=== PATIENT | female | born 1970 | race Caucasian/White ===

== ENCOUNTER 2025-03-20 08:45 | Emergency (ER) | payer BC, SELFPAY ==
--- NOTE | ~2025-03-20 | CT_ITS ---
EXAMINATION: CT abdomen pelvis w con DATE: 03/20/2025 09:54 INDICATION: Left lower quadrant abdominal pain. TECHNIQUE: Computed tomography (CT) of the abdomen and pelvis was performed with 100 mL Omnipaque 350 intravenous contrast. Automated exposure control and iterative reconstruction technique were employed. The dose-length product was 800.87 mGy-cm. COMPARISON: None. FINDINGS: The visualized portions of the lung bases demonstrate mild atelectasis. No pleural effusion. The heart size is normal. No pericardial effusion. There is a small sliding hiatal hernia. There is a 7 mm cyst in the liver. There are changes of cholecystectomy. The pancreas, spleen, adrenal glands, and right kidney are normal. There is a 2.1 cm cyst in left kidney. There are scattered diverticula in the colon. There is wall thickening of the sigmoid colon with surrounding fat stranding centered at a diverticulum, consistent with diverticulitis. There are changes of right hemicolectomy. There are no pathologically enlarged lymph nodes. There is trace ascites. There is a supraumbilical ventral hernia containing fat. There is a benign bone island in left ischium. There is mild thoracic and lumbar spondylosis. IMPRESSION: 1. Acute sigmoid diverticulitis. No perforation or abscess. Reviewed, dictated and finalized at location E.
[2025-03-20 08:52] VITALS: BP 142/86; PULSE 94; RESP 16; TEMP 37; O2SAT 97
[2025-03-20 09:09] LABS: Hematocrit 45.1 % (37.0-47.0); Hemoglobin 14.6 g/dL (12.0-15.0); Immature Granulocyte Percent A 0.4 % (0-0.5); Lymphocytes Absolute Auto 1.83 K/mm3 (0.9-3.2); Mean Corpuscular HGB Conc 32.4 g/dl (32-36); Mean Corpuscular Hemoglobin 29.6 pg (26-34); Mean Corpuscular Volume 91.5 fl (80-100); Nucleated Red Blood Cells Absolute Auto 0.000 K/mm3 (0.0-0.012); Nucleated Red Blood Cells Perc 0.0 % (0.0-0.2); Platelet Count Result 229 k/mm3 (150-375); Red Blood Count 4.93 M/mm3 (4.2-5.4); White Blood Count 7.8 K/mm3 (4.5-10.0)
[2025-03-20 09:16] LABS: Add Urine Microscopic? YES; Appearance Urine Cloudy (Clear); Glucose Urine UA Negative (Negative); Leukocyte Esterase Ur 3+ LEU/UL (Negative); Nitrate Urine Negative (Negative); Non Pathogenic Casts 0-2; Specific Grav Ur 1.026 (1.001-1.035)
[2025-03-20 09:32] LABS: Alanine Aminotransferase 15 U/L (6-35); Albumin Level 4.4 g/dL (3.5-5.1); Alkaline Phosphatase 75 U/L (38-126); Anion Gap 8 mmol/L (4-12); Aspartate Amino Transferase 29 U/L (14-36); Bilirubin,Total 0.9 mg/dL (0.2-1.3); Blood Urea Nitrogen 16 mg/dL (7-17); Calcium 9.1 mg/dL (8.4-10.2); Carbon Dioxide 25 mmol/L (22-30); Chloride 107 mmol/L (98-107); Estimated CRCL calculation 93 ml/min; Estimated Glomerular Filt Rate > 60; Glucose 104 mg/dL (65-110); Lipase 127 U/L (23-300); Potassium 3.8 mmol/L (3.4-5.0); Sodium 140 mmol/L (137-145); Total Protein 7.9 g/dL (6.3-8.2)
--- NOTE | 2025-03-20 10:15 | ED.GENADULT ---
HPI - General Adult General Chief complaint: Abdominal Pain Stated complaint: abd pain Time Seen by Provider: 03/20/25 09:05 History of Present Illness HPI narrative: Patient is a 54-year-old female with history of colon cancer and diverticulosis who presents ER with lower abdominal pain. Worsening over last 2 days. Worse in left lower quadrant. Began after eating some cashews. No diarrhea. No urinary symptoms. No alleviating factors. Symptoms worse with movement and palpation. Related Data Home Medications ?Medication ?Instructions ?Recorded ?Confirmed ?Last Taken ?Type cholecalciferol (vitamin D3) 50 2,000 unit PO DAILY 08/02/19 03/20/25 03/19/25 History mcg (2,000 unit) chewable tablet Lactobacillus acidophilus 10 100 mmu cells PO DAILY 03/20/25 03/20/25 03/19/25 History billion cell capsule (Probiotic) Allergies Allergy/AdvReac Type Severity Reaction Status Date / Time oxaliplatin Allergy Severe Swelling Verified 03/20/25 09:12 pollen extracts Allergy Unknown Other Verified 03/20/25 09:12 Review of Systems Review of Systems: All systems reviewed & are unremarkable except as noted in HPI and below Constitutional: Constitutional: Reports no additional constitutional complaints Cardiovascular: Cardiovascular: Reports no additional cardiovascular complaints Respiratory: Respiratory: Reports no additional respiratory complaints Musculoskeletal: Musculoskeletal: Reports no additional musculoskeletal complaints [facility] Past Medical History Medical History Allergic rhinitis Colon cancer Lerma syndrome Mixed hyperlipidemia Surgical History Surgical History History of colon resection (~2016) History of hysterectomy (~2017) DALE-BSO Family History Family History Grandparent Family history of cardiovascular disease Cerebrovascular accident Family history of Parkinson's disease Family history of dementia Father Family history of lung cancer, Onset Age: 53 Mother Family history of malignant neoplasm of uterus Other Carcinoma of colon Social History Social History Smoking status: Never smoker Second hand tobacco smoke exposure: No Alcohol intake: never Substance use: never Exam Narrative: GENERAL: Well-appearing, well-nourished, and in no acute distress. HEAD: Normocephalic, atraumatic. ENT: Mucous membranes moist. CHEST: Clear to auscultation. No respiratory distress. HEART: Regular rate and rhythm. Normal peripheral pulses. ABDOMEN: Soft, mild tenderness left lower quadrant with guarding nondistended. EXTREMITIES: Normal range of motion. No edema. SKIN: Warm, dry, no rash. NEURO: Alert and oriented x3. PSYCH: Normal mood and affect. Course Course Emergency Course: Patient educated on diagnosis and treatment plan. Discharged home. UA with elevated white blood cells/leukocyte esterase/bacteria, antibiotics will treat both UTI and diverticulitis. Vital Signs Vital signs: Vital Signs Temperature 98.6 F 03/20/25 08:52 Pulse Rate 94 03/20/25 08:52 Respiratory Rate 16 03/20/25 08:52 Blood Pressure 142/86 H 03/20/25 08:52 Pulse Oximetry 97 03/20/25 08:52 Oxygen Delivery Room Air 03/20/25 08:52 Temperature 98.6 F 03/20/25 08:52 Pulse Rate 94 03/20/25 08:52 Respiratory Rate 16 03/20/25 08:52 Blood Pressure 142/86 H 03/20/25 08:52 Pulse Oximetry 97 03/20/25 08:52 Oxygen Delivery Room Air 03/20/25 08:52 Medical Decision Making Vital Signs Vital Signs: Vital Signs Temperature 98.6 F 03/20/25 08:52 Pulse Rate 94 03/20/25 08:52 Respiratory Rate 16 03/20/25 08:52 Blood Pressure 142/86 H 03/20/25 08:52 Pulse Oximetry 97 03/20/25 08:52 Oxygen Delivery Room Air 03/20/25 08:52 Temperature 98.6 F 03/20/25 08:52 Pulse Rate 94 03/20/25 08:52 Respiratory Rate 16 03/20/25 08:52 Blood Pressure 142/86 H 03/20/25 08:52 Pulse Oximetry 97 03/20/25 08:52 Oxygen Delivery Room Air 03/20/25 08:52 Lab Data 03/20/25 09:00 03/20/25 09:00 Labs: Lab Results 03/20/25 Range/Units 09:00 WBC 7.8 (4.5-10.0) K/mm3 RBC 4.93 (4.2-5.4) M/mm3 Hgb 14.6 (12.0-15.0) g/dL Hct 45.1 (37.0-47.0) % MCV 91.5 (80-100) fl MCH 29.6 (26-34) pg MCHC 32.4 (32-36) g/dl RDW 13.2 (11.5-14.5) % Plt Count 229 (150-375) k/mm3 MPV 10.2 (7.4-10.4) fl Immature Gran % (Auto) 0.4 (0-0.5) % Neut % (Auto) 67.0 (45.5-73.1) % Lymph % (Auto) 23.5 (18.3-44.2) % [place] % (Auto) 7.1 (2.6-8.5) % Eos % (Auto) 1.4 (0-4.4) % Baso % (Auto) 0.6 (0.2-1.2) % Lymph # (Auto) 1.83 (0.9-3.2) K/mm3 [place] # (Auto) 0.6 (0.1-0.6) K/mm3 Eos # (Auto) 0.1 (0-0.3) K/mm3 Baso # (Auto) 0.1 (0.0-0.1) K/mm3 Abs Immat Gran (auto) 0.03 (0.00-0.031) K/mm3 Absolute Neuts (auto) 5.2 (1.3-6.7) K/mm3 Absolute Nucleated RBC 0.000 (0.0-0.012) K/mm3 Nucleated RBC % 0.0 (0.0-0.2) % Sodium 140 (137-145) mmol/L Potassium 3.8 (3.4-5.0) mmol/L Chloride 107 (98-107) mmol/L Carbon Dioxide 25 (22-30) mmol/L Anion Gap 8 (4-12) mmol/L BUN 16 (7-17) mg/dL Creatinine 0.72 (0.7-1.0) mg/dL Estim Creat Clear Calc 93 ml/min Estimated GFR > 60 (59 - ) Glucose 104 (65-110) mg/dL Calcium 9.1 (8.4-10.2) mg/dL Total Bilirubin 0.9 (0.2-1.3) mg/dL AST 29 (14-36) U/L ALT 15 (6-35) U/L Alkaline Phosphatase 75 (38-126) U/L Total Protein 7.9 (6.3-8.2) g/dL Albumin 4.4 (3.5-5.1) g/dL Lipase 127 (23-300) U/L Urine Color Yellow (Yellow) Urine Appearance Cloudy H (Clear) Urine pH 6.0 (5.0-9.0) Ur Specific [place] 1.026 (1.001-1.035) Urine Protein Trace (Negative) mg/dL Urine Glucose (UA) Negative (Negative) mg/dL Urine Ketones Trace H (Negative) mg/dL Ur Blood (Man) Negative (Negative) Urine Nitrate Negative (Negative) Urine Bilirubin Negative (Negative) Urine Urobilinogen 0.2 (<2.0) mg/dL Leukocyte Esterase Rfl 3+ H (Negative) LAW/UL Urine RBC 0-2 (0-2) /hpf Urine WBC >100 H (0-3) /hpf Ur Squamous Epith Cells Moderate (Few) /hpf Urine Bacteria 1+ H /hpf Urine Casts 0-2 Imaging Data Radiologist's impression: ITS Impressions Abdomen/Pelvis CT 03/20/25 09:58 IMPRESSION: 1. Acute sigmoid diverticulitis. No perforation or abscess. Discharge Plan Discharge Clinical Impression: Diverticulitis, UTI (urinary tract infection) Patient Disposition: Home Condition: Stable Instructions: Antibiotic Form, Diverticulitis (ED), Diverticulitis Diet (ED) Additional Instructions: Return to the emergency department if you develop severe abdominal pain, severe nausea and vomiting to the point where you are unable to keep down fluids, if you develop chest pain or difficulty breathing, blood in your stool, dizziness or fainting, or if you develop any other new or concerning symptoms as these could be signs of more serious medical illness. Try to stay well hydrated. Patient Language: [place] Prescriptions: New hydrocodone-acetaminophen 5-325 mg tablet 1 tablet PO Q6H PRN (Reason: pain) Qty: 10 0RF amoxicillin-pot clavulanate 875-125 mg tablet 1 tablet PO TID Qty: 21 0RF No Action cholecalciferol (vitamin D3) 2,000 unit tablet,chewable 2,000 unit PO DAILY Probiotic 10 billion cell capsule 100 mmu cells PO DAILY Follow-up/Referrals: PHYSICIAN NOT ON STAFF,NONSTAFF [Primary Care Provider] - 1 Week
[2025-03-20 10:36] VITALS: BP 125/73; PULSE 70; RESP 16; O2SAT 98
== END 2025-03-20 10:38 | disposition home or self-care (01) ==
PROVIDERS: Emergency Provider Emergency Medicine
DX: N39.0 Urinary tract infection, site not specified (principal); K57.32 Diverticulitis of large intestine without perforation or abscess without bleeding; E78.5 Hyperlipidemia, unspecified; Z85.038 Personal history of other malignant neoplasm of large intestine
CPT/HCPCS: 36415; 74177; 80053; 81001; 83690; 85025; 99284; Q9967